=== PATIENT | male | born 1990 | race Hispanic/Latino ===

== ENCOUNTER 2021-08-19 13:14 | Emergency (ER) | payer OTHER ==
[2021-08-19] MEDS ORDERED: Ketorolac Tromethamine 30 MG/ML VIAL ONE (13:35)
== END 2021-08-19 13:47 | disposition home or self-care (01) ==
LOC: CSHERS 13:14
DX: M62.830 Muscle spasm of back (principal); R51.9 Headache, unspecified; V89.2XXA Person injured in unspecified motor-vehicle accident, traffic, initial encounter
CPT/HCPCS: 96372; 99283; J1885